=== PATIENT | female | born 1980 | race Caucasian/White ===

== ENCOUNTER 2017-07-04 08:57 | Emergency (ER) | payer OTHER ==
[~2017-07-04] VITALS: Ht 165.1 cm; Wt 84.5 kg
[2017-07-04] MEDS ORDERED: ketorolac tromethamine 15mg/ml inj. IM ONE (09:45)
[2017-07-04] MEDS ORDERED: cyclobenzaprine 10mg tablet PO ONE (09:45)
[2017-07-04] MEDS ORDERED: NAPR-56 PO (09:49)
[2017-07-04] MEDS ORDERED: METH-360 PO (09:49)
[2017-07-04 10:02] VITALS: BP 145/98
== END 2017-07-04 10:07 | disposition home or self-care (01) ==
LOC: ER 08:58
DX: M54.42 Lumbago with sciatica, left side (principal); Z79.899 Other long term (current) drug therapy
CPT/HCPCS: 96372; 99283; J1885